=== PATIENT | female | born 1990 | race Caucasian/White ===

== ENCOUNTER 2019-04-15 21:29 | Emergency (ER) | payer SELFPAY ==
[2019-04-15 21:57] VITALS: BP 135/84; PULSE 70; RESP 18; TEMP 36.7; O2SAT 98; BMI 23.9
--- NOTE | 2019-04-15 22:31 | DI.RAD.S_ITS ---
PROCEDURE: XR KNEE LT 3V INDICATIONS: pain injury can't walk TECHNIQUE: 3 views of the knee were acquired. COMPARISON: None. FINDINGS: Bones: No fractures or dislocations. No suspicious bony lesions. Soft tissues: No joint effusion. No suspicious soft tissue calcifications. IMPRESSION: No fracture. No osseous lesion. If symptoms and/or clinical suspicion for pathology persists, further assessment with repeat radiographs (7-10 days) or advanced imaging (e.g. CT, MRI or bone scan) may be helpful. Dictated by: Milka Block MD, PhD on 04/16/2019 at 8:29 Approved by: Milka Block MD, PhD on 04/16/2019 at 8:29
--- NOTE | 2019-04-15 22:40 | ED.LOWEXIN ---
HPI - Extremity Injury (Lower) General Chief Complaint: Extremity Injury, Lower Stated Complaint: LT KNEE INJURY Time Seen by Provider: 04/15/19 22:23 Source: patient Mode of arrival: Wheelchair Limitations: no limitations History of Present Illness HPI Narrative: Patient is a 28-year-old female presents with left knee pain. She states that a few hours ago she was stepping backwards out of a sprinter van when she felt something pop is. She has been unable to weight bear since. No numbness or tingling. complaint: knee injury Related Data Previous Rx's Medication Instructions Recorded tramadol 50 mg PO Q6H PRN #10 tab 04/15/19 Allergies Allergy/AdvReac Type Severity Reaction Status Date / Time acetaminophen [From VICODIN] Allergy Intermediate ITCHING Verified 04/15/19 21:57 hydrocodone [From VICODIN] Allergy Intermediate ITCHING Verified 04/15/19 21:57 Review of Systems Review of Systems Narrative: GENERAL: Denies chills,fever HEENT: Denies throat pain RESPIRATORY: Denies dyspnea, cough, wheezing CARDIOVASCULAR: Denies chest pain, palpitations GASTROINTESTINAL: Denies nausea, vomiting MUSCULOSKELETAL: See HPI SKIN: No rash, no laceration, no pruritus NEUROLOGIC: Denies weakness, dizziness, headache, numbness 8 point review of systems is negative except for those stated above and HPI Patient History Medical History Patient denies medical problems (Acute) Social History Smoking Status: Never smoker alcohol intake frequency: 0-2 drinks per day Alcohol type: wine Substance Use Type: marijuana Exam Initial Vital Signs Initial Vital Signs: Vital Signs Temperature 98.1 F 04/15/19 21:57 Pulse Rate 70 04/15/19 21:57 Respiratory Rate 18 04/15/19 21:57 Blood Pressure 135/84 04/15/19 21:57 Pulse Oximetry 98 04/15/19 21:57 GENERAL: Well-appearing, well-nourished and in no acute distress. CARDIOVASCULAR: peripheral pulses in tact, cap refill <2 sec RESPIRATORY: No respiratory distress, speaks in full sentences without difficulty EXTREMITIES: Normal range of motion, no clubbing or edema. Neurovascularly intact Left knee stable minimal swelling no erythema able to extend neurovascularly intact NEUROLOGICAL: Cranial nerves II through XII grossly intact. Normal gait and speech. SKIN: Warm, dry, no petechiae, no rashes or lesions. Procedures Orthopedic Splinting/Casting Injury #1: Lower Extremity Injury Location: knee Lower Extremity Immobilizer: knee immobilizer Other Orthopedic Equipment: crutches Post splinting neuro exam: intact Post splinting vascular exam: intact Placed by: Nursing Course Orders Ordered: ED Orders 04/15/19 22:31 XR knee LT 3V Stat Discontinued Medications Tramadol HCl (Ultram) 100 mg PO NOW ONE Stop: 04/15/19 22:32 Last Admin: 04/15/19 22:41 Dose: 100 mg Documented by: RUSTY Tramadol HCl (Ultram 50mg Prepack) 1 bottle MISC SEEINSTR ONE Stop: 04/15/19 22:51 Last Admin: 04/15/19 22:59 Dose: 1 bottle Documented by: RUSTY Vital Signs Vital signs: Vital Signs - 8 hr 04/15/19 21:57 Temperature 98.1 F Pulse Rate 70 Respiratory Rate 18 Blood Pressure 135/84 Pulse Oximetry 98 MDM - Extremity Injury (Lower) Imaging Data left knee XR: Attestation: I personally reviewed and interpreted this imaging study as follows: My impression: No acute process no fracture identified Discharge Plan Departure Patient Disposition: Home Clinical Impression: Left knee sprain Qualifiers: Encounter type: initial encounter Involved ligament of knee: unspecified ligament Qualified Code(s): S83.92XA - Sprain of unspecified site of left knee, initial encounter Discharge Date/Time: 04/15/19 23:20 Instructions: DI for Knee Sprain Activity Restrictions/Additional Instructions: *You have been diagnosed with left knee sprain *What to do: Increase activity as tolerated, where knee brace while active use crutches as needed. You may require MRI the next few weeks if still having *Continue to take medications as directed Ibuprofen 800 mg every 8 hours if needed [id number] Tramadol 50 mg every 6 hours if needed for severe pain *Follow up with your primary care provider in 2-3 days *Return to ER if you should have increasing pain, swelling, redness or any new, worsening or concerning symptoms CONTROLLED SUBSTANCE DISCHARGE (Narcotoic/benzodiazepine/Flexeril/Phenergan) 1. You have been prescribed narcotic medications, it does have acetaminophen/Tylenol/paracetamol in it so do not take extra Tylenol or Tylenol containing products TRAMADOL DOES NOT CONTAIN TYLENOL 2. Please understand that we cannot provide further refills of narcotics, benzodiazepines or controlled substances through the ED and her pain management will need to be through your provider. 3. While on these medications you cannot drive or operate heavy machinery. 4. You cannot sign legal documents or perform any duties such as this. 5. As long as you're taking opiate pain medications he should also be taking a stool softener such as Colace, Dulcolax, MiraLAX or prune juice, to help avoid constipation. Prescriptions: New tramadol 50 mg tablet 50 mg PO Q6H PRN (Reason: pain) Qty: 10 RF: 0
[2019-04-15] MEDS: TRAMADOL 50 MG TABLET 100 MG PO (22:41)
[2019-04-15] MEDS: TRAMADOL 50 MG PREPACK 1 BOTTLE MISC (22:59)
== END 2019-04-15 23:20 | disposition home or self-care (01) ==
PROVIDERS: Emergency Provider Emergency Medicine
DX: S83.92XA Sprain of unspecified site of left knee, initial encounter (principal)
CPT/HCPCS: 73562; 99283